=== PATIENT | female | born 1935 | race Caucasian/White ===

== ENCOUNTER → 2018-04-21 16:17 | Outpatient (CLI) | payer MEDICARE | END | disposition home or self-care (01) | LOC: D.CT 16:00 | PROVIDERS: ATTEND Internal Medicine Hematology & Oncology | DX: C18.2 Malignant neoplasm of ascending colon (principal) ==

== ENCOUNTER 2019-05-01 16:56 | Inpatient (IN) | payer MEDICARE, BC ==
[~2019-05-01] VITALS: Ht 167.6 cm; Wt 59.1 kg
[2019-05-01] MEDS ORDERED: METOPROLOL TART25 MG PO (17:14)
[2019-05-01] MEDS ORDERED: LIPITOR20 MG PO (17:14)
[2019-05-01] MEDS ORDERED: OMEPRAZOLE40 MG PO (17:15)
[2019-05-01] MEDS ORDERED: AMITRIPTYLINE150 MG PO (17:15)
[2019-05-01 18:23] LABS: BASOPHILS 0.3 % (0-2); EOSINOPHILS 0.6 % (0-7); HEMATOCRIT 46.6 % (36.0-48.0); HEMOGLOBIN 15.2 g/dL (12-16); IMMATURE GRANULOCYTES 0.2 % (0-5); LYMPHOCYTES 23.1 % (15-50); MCH 28.5 pg (26.0-34.0); MCHC 32.6 g/dL (31.0-37.0); MCV 87.3 fL (80.0-100.0); MEAN PLATELET VOLUME 9.1 fL (7.4-10.4); MONOCYTES 13.2 % (2-11); NEUTROPHILS 62.6 % (40-80); PLATELET COUNT 143 10x3/uL (130-400); RBC 5.34 10x6/uL (4.00-5.40); RDW 13.5 % (11.5-14.5); WBC 9.1 10x3/uL (4.8-10.8)
[2019-05-01 18:34] LABS: APTT 32.3 SECONDS (22.8-39.4); INR 1.01 (0.85-1.17); PROTIME 13.3 SECONDS (11.6-15.0)
[2019-05-01 19:01] LABS: CALC OSMOLALITY 280 mosm/kg (275-300); CALCIUM 9.5 mg/dL (8.5-10.1); CARBON DIOXIDE 29.8 mmol/L (21.0-32.0); CHLORIDE - SERUM 102 mmol/L (98-107); CREATININE - SERUM 0.8 mg/dL (0.6-1.3); GLUCOSE 128 mg/dL (74-106); POTASSIUM - SERUM 3.2 mmol/L (3.5-5.1); SODIUM 140 mmol/L (136-145); UREA NITROGEN 12 mg/dL (7-18); eGFR NON AFRICAN AMERICAN 73 mL/min (90-120)
[2019-05-01 19:15] LABS: ALBUMIN 3.7 g/dL (3.4-5.0); ALKALINE PHOSPHATASE 104 U/L (30-120); ALT (SGPT) 25 U/L (10-68); BILIRUBIN - TOTAL 1.67 mg/dL (0.2-1.3); CKMB 0.6 U/L (0.0-3.6); CREATINE KINASE 72 UL (21-215); PRO BNP 342 pg/mL (0-450); PROTEIN - SERUM 7.7 g/dL (6.4-8.2)
[2019-05-01 19:16] LABS: TROPONIN-I < 0.017 ng/mL (0.000-0.060)
[2019-05-01 22:08] VITALS: BP 174/99
--- NOTE | 2019-05-01 22:15 | NUR ---
PATIENT SITTING UP ON SIDE OF BED O2 SAT 89%. EDP NOTIFIED. O2 APPLIED @ 2 L/M. COMPLAINS OF R ARM PAIN. HR REMAINS TACHY @ 108.SAT 96% WITH O2 @ 2L/M PER NC
[2019-05-02 01:39] VITALS: BP 136/57; Ht 167.6 cm; Wt 59.1 kg
--- NOTE | 2019-05-02 01:52 | NUR ---
RECEIVED REPORT FROM CHACHO AREVALO IN ER. ARRIVED TO FLOOR ON STRETCHER. ALERT AND ORIENTEED X4 WITH PERIODS OF CONFUSION. VERY [place] AND MUST REPEAT QUESTIONS SEVERAL TIMES. ALSO, BECOMES CONFUSED. UNSURE IF THIS IS FROM BEING TIRED. DOES HAVE HX OF CVA. SHOWS NO S/S OF RT OR LEFT SIDED WEAKNESS. PUPILS PERRLA. SKIN INTACT. ANSWERES MOST QUESTIONS THAN BECOMES CONFUSED AND UNABLE TO RECALL. SDENIES ANY NEEDS AT THIS TIME.
[2019-05-02 06:15] VITALS: BP 163/87
[2019-05-02 07:46] VITALS: BP 167/75
--- NOTE | 2019-05-02 07:53 | NUR ---
REPORT RECEIVED. WILL CONTINUE WITH POC. PT CURRENTLY LYING SEMI FOWLERS. CALL LIGHT W/I REACH. PT IS AAO. RR EVEN AND UNLABORED ON 2L 02. R.HAND PIV SALINE LOCKED. NO S/S OF DISTRESS NOTED. PT DENIES ANY NEEDS AT THIS TIME. WILL CTM.
[2019-05-02 11:21] VITALS: BP 154/75
--- NOTE | 2019-05-02 12:27 | NUR ---
PT LYING HIGH FOWLERS. CALL LIGHT W/I REACH. EATING LUNCH AT THIS TIME. NO S/S OF DISTRESS NOTED. PT DENIES ANY NEEDS. PIV SALINE LOCKED. WILL CTM.
--- NOTE | 2019-05-02 13:11 | NUR ---
I have reviewed this patient and I concur with the Shift Assessment completed by the Licensed Practical Nurse today this shift.
[2019-05-02 16:53] VITALS: BP 164/77
--- NOTE | 2019-05-02 21:02 | NUR ---
GREETED PATIENT AND INTRODUCED MYSELF HER NURSE. PATIENT IS LAYING IN BED RESTING QUIETLY AT THIS TIME. RESPIRATIONS EVEN. NO S/S OF DISTRESS. STATES NO EVIDENCE OF PAIN AT THIS TIME. DENIES ANY NEEDS. CALL LIGHT IN REACH.
[2019-05-02 21:06] VITALS: BP 142/73
--- NOTE | 2019-05-02 23:07 | HP ---
PATIENT: GURJIT SERRANO MEDICAL RECORD: [id number] ACCOUNT: [id number] LOCATION:[address] : 37 ADMISSION DATE: 05/01/19 PCP: INA WISDOM MD HISTORY AND PHYSICAL EXAMINATION DATE OF ADMISSION: 05/01/2019 CHIEF COMPLAINT: Left shoulder and arm pain. HISTORY OF PRESENT ILLNESS: This is an 83-year-old female who presented to the ER on day of admission, initially complaining of pain in her left shoulder and left arm. A few days ago, she was lifting some heavy loads of laundry and thinks she may have strained her shoulder/arm. She was having difficulty with range of motion and could not sleep very well due to pain. When asked during triage about other symptoms, it was reported that she had a "low-grade fever" and cough. She denied any fever or chills otherwise (I spoke with the patient's emergency contact, Cher Piper, who said that she is always cold and keeps her temperature in her house up around 80). She went to see Dr. Pham last week on 04/27/2019 and the weather was cold. Since then, she had the sniffles and some congestion and she may have had a temperature of 99 or 99.2. That led to further questioning where there was reportedly some wheezing. She had a full workup in the ER including influenza A and B, RSV, and a strep test. These were all negative. She was also tested for coronavirus, which will take several days for that to get back. Her white count was normal. Her basic metabolic panel was fairly normal. Chest x-ray read by the ER staff suggested an atypical pneumonia (later read by radiologist has no acute cardiopulmonary findings, but she does have emphysematous changes) she was admitted for further care. PAST MEDICAL HISTORY: She has had a stroke, has hypertension, coronary artery disease, reflux and a diagnosis of colon cancer. PAST SURGICAL HISTORY: She has had a port placement. She has had a partial right colectomy. She has had a history of coronary stents per Dr. Wright, hysterectomy and an appendectomy as well. ALLERGIES: PENICILLIN. HOME MEDICATIONS: Metoprolol tartrate 25 mg once a day, atorvastatin 20 mg once a day, Elavil 150 mg at bedtime, Prilosec 40 mg a day. SOCIAL HISTORY: , retired and lives with family. HABITS: Never smoked. No alcohol or drugs. FAMILY HISTORY: Father at 72 of pneumonia. Mother at 81 of heart disease. A brother of lung cancer. REVIEW OF SYSTEMS: GENERAL: No major weight changes. HEENT: No particular sinus or allergy problems. RESPIRATORY: Chest x-rays in the past are consistent with COPD changes. She does not have a diagnosis of COPD or emphysema. She takes no medicines for. GASTROINTESTINAL: She has a history of colon cancer from 2018. Has a little reflux. GENITOURINARY: No significant problems there. HISTORY AND PHYSICAL [id number] GURJIT SERRANO MUSCULOSKELETAL: No significant joint aches or pains. NEUROLOGY: No migraines or seizures. She has had left middle cerebral artery stroke in 2018, which further workup actually showed colon cancer. PSYCHIATRIC: Denies depression or melancholia. She does not sleep well though. PHYSICAL EXAMINATION: VITAL SIGNS: Temperature 99.3, pulse 108, respirations 17, blood pressure 154/75, O2 sat 94%. HEENT: Unremarkable. NECK: Supple. HEART: Regular rate and rhythm. LUNGS: Pretty clear. No wheeze, no rales. ABDOMEN: Soft, nontender. EXTREMITIES: She has decreased range of motion to her left shoulder. She has generalized tenderness throughout the left shoulder area. No change in color, texture, or temperature of the skin around the shoulder. NEUROLOGIC: Unremarkable. LABORATORY AND DIAGNOSTIC DATA: CBC with a white count of 9100, hemoglobin 15.2, hematocrit 46.6. Basic metabolic panel; sodium 140, potassium 3.2, chloride 102, CO2 29.8, BUN 12, creatinine 0.8, glucose 128, calcium is 9.5, INR 1.01. Liver functions are normal except total bilirubin is 1.67, troponin less than 0.017. Flu influenza test for A and B are negative. RSV is negative. Strep test is negative. Coronavirus test by PCR is pending. X-ray of the left forearm shows no acute process. Left humerus shows no acute abnormalities. Chest x-ray shows no acute cardiopulmonary process, changes are consistent with emphysema. Throat culture and blood cultures have been done. ASSESSMENT: 1. Left shoulder and arm pain. 2. Mild cough. 3. Sinus congestion. PLAN: Throat and blood cultures have been done. Coronavirus is pending. She is started on Rocephin and azithromycin. We will give her steroids for her arm, see how she does with that and consider discharge sooner rather than later. TRANSINT:[id number] Voice Confirmation ID: [id number] DOCUMENT ID: [id number] INA WISDOM MD at 2307 CC: [id number] DICTATION DATE: 05/02/19 1559 STEM FRAZER: 05/02/19 1630 ADM IN [place] [id number] [place] [address]
--- NOTE | 2019-05-03 00:17 | NUR ---
PT CONTINUES TO BE IN DROPLET ISOLATION DUE TO PRESUMPTIVE COVID-19.
[2019-05-03 00:30] VITALS: BP 146/51
--- NOTE | 2019-05-03 01:20 | NUR ---
PT CONFUSED AND TRIED TO HIT THIS NURSE WHILE DOING IV PUSH IN RIGHT WRIST. REORIENTATED PATIENT TO SURROUNDINGS AND STAFF. CALL LIGHT IN REACH.
--- NOTE | 2019-05-03 03:33 | NUR ---
PT RESTING IN BED WITH EYES CLOSED. RESPIRATIONS EVEN. NO S/S OF DISTRESS. CALL LIGHT IN REACH.
[2019-05-03 04:30] VITALS: BP 132/55
[2019-05-03 06:19] LABS: BASOPHILS 0.5 % (0-2); HEMATOCRIT 40.4 % (36.0-48.0); HEMOGLOBIN 13.2 g/dL (12-16); IMMATURE GRANULOCYTES 0.2 % (0-5); LYMPHOCYTES 26.9 % (15-50); MCH 28.1 pg (26.0-34.0); MCHC 32.7 g/dL (31.0-37.0); MEAN PLATELET VOLUME 9.1 fL (7.4-10.4); MONOCYTES 13.5 % (2-11); NEUTROPHILS 57.9 % (40-80); PLATELET COUNT 135 10x3/uL (130-400); RDW 13.2 % (11.5-14.5)
[2019-05-03 06:38] LABS: CALC OSMOLALITY 282 mosm/kg (275-300); CALCIUM 8.7 mg/dL (8.5-10.1); CARBON DIOXIDE 31.7 mmol/L (21.0-32.0); CHLORIDE - SERUM 103 mmol/L (98-107); CREATININE - SERUM 0.7 mg/dL (0.6-1.3); GLUCOSE 123 mg/dL (74-106); SODIUM 142 mmol/L (136-145); UREA NITROGEN 9 mg/dL (7-18); eGFR NON AFRICAN AMERICAN 85 mL/min (90-120)
[2019-05-03 07:05] LABS: WBC 6.1 10x3/uL (4.8-10.8)
--- NOTE | 2019-05-03 08:00 | NUR ---
PT LAYING SUPINE. RR EVEN AND UNLABORED ON 2L NC. CALL LIGHT WITHIN REACH. INSTRUCTED TO CALL 2150 ON THE PHONE WHEN IN NEED OF SOMETHING. PHONE IN REACH. DROPLET PRECAUTIONS IN PLACE. BED ALARM ON AND FUNCTIONING PROPERLY. DENIES NEEDS OR PAIN AT THIS TIME. ASSISTED WITH SETTING UP BREAKFAST TRAY. SITTING UP AND EATING WITH NO DIFFICULTY. AXO AT THIS TIME, HOWEVER, SLOW TO RESPOND. ASSESSMENT COMPLETE AND CHARTED. BED IN LOWEST POSITION. WILL CONTINUE TO MONITOR.
[2019-05-03 09:39] VITALS: BP 125/71
--- NOTE | 2019-05-03 10:07 | NUR ---
I have reviewed this patient and I concur with the Shift Assessment completed by the Licensed Practical Nurse today this shift.
--- NOTE | 2019-05-03 11:22 | NUR ---
PT CALLED, IV HURTING. UPON WAKING IN, IV RED AND SWOLLEN. IV INFUSIONS STOPPED. RESITE ATTEMPTED X2. UNSUCCESSFUL. PT HAS PORT TO LEFT CHEST. SPOKE WITH DR. WISDOM FOR PERMISSION TO ACCESS PORT. STATED HE WAS PROBABLY GOING TO SEND HER HOME TODAY. WILL WAIT FOR HIM TO ROUND.
--- NOTE | 2019-05-03 11:30 | NUR ---
SPENT APPROX. 20 MINUTES SPEAKING WITH DAUGHTER OVER PHONE ABOUT POC. VERBALIZED UNDERSTANDING AND NO FURTHER QUESTIONS AT THIS TIME.
[2019-05-03 13:15] VITALS: BP 100/70
--- NOTE | 2019-05-03 17:00 | NUR ---
SPOKE WITH DAUGHTER ABOUT UPDATED POC. SPOKE WITH DR. WISDOM'S NURSE ABOUT GETTING ELECTROLYTE PROTOCOL AND STOOL SOFTENER FOR PT, WELL DISCHARGE TIME. STATED SHE WOULD CALL BACK.
[2019-05-03 17:26] VITALS: BP 144/77
[2019-05-03 19:09] VITALS: BP 145/75
--- NOTE | 2019-05-03 19:38 | NUR ---
PT IN BED, AAO X 3, RESP EVEN AND UNLABORED. NO DISTRESS NOTED, O2@2L/NC, NO C/O PAIN OR DISCOMFORT NOTED. PT EATING DINNER, CL IN REACH, SR UP X 2.
[2019-05-04] VITALS: BP 127/68
[2019-05-04 04:00] VITALS: BP 140/68
[2019-05-04 08:07] VITALS: BP 127/76
--- NOTE | 2019-05-04 11:06 | NUR ---
I have reviewed this patient and I concur with the Shift Assessment completed by the Licensed Practical Nurse today this shift.
--- NOTE | 2019-05-04 11:30 | NUR ---
D/C INTRUCTIONS REVIEWED WITH PT AND DAUGHTER. IV D/C WITH CATHETER TIP INTACT. LEFT VIA WHEELCHAIR WITH ALL BELONGINGS AND WITH MASK.
--- NOTE | 2019-05-04 17:14 | MORECARE ---
CASE MANAGEMENT DISCHARGE SUMMARY PATIENT: GURJIT SERRANO UNIT: [id number] ADM DATE: 05/01/19 AGE: 83 : 37 SEX: F ROOM/BED: D.2130 AUTHOR: ELENA REGAN PHYSICIAN: REFERRING PHYSICIAN: INA WISDOM MD DATE OF SERVICE: 05/04/19 Discharge Plan Patient Name: [facility]URJIT [facility]ERRANO [facility] [facility] 1935 Planned Disposition: Home Anticipated Discharge Date: 05/04/19 Discharge Date: 05/04/2019 Expected LOS: 3 Initial Reviewer: [email or web address] Initial Review Date: 05/04/2019 Generated: 05/04/19 6:14 pm Patient Name: GURJIT SERRANO Page [id number] at 1714 All edits/amendments must be made on the electronic document DICTATION DATE: 05/04/191713 BAND ATTACHER: JANICE 05/04/191713 RPT#: [id number] DC DATE:05/04/19 STATUS: DIS IN [facility] [address] [facility] [place] [address] END OF REPORT
--- NOTE | 2019-05-04 17:23 | MORECARE ---
CASE MANAGEMENT DISCHARGE SUMMARY PATIENT: GURJIT SERRANO UNIT: [id number] ADM DATE: 05/01/19 AGE: 83 : 37 SEX: F ROOM/BED: D.2130 AUTHOR: JASS,DOC PHYSICIAN: REFERRING PHYSICIAN: INA WISDOM MD DATE OF SERVICE: 05/04/19 Discharge Plan Patient Name: GURJIT SERRANO Facility: [facility]:[place] : 1935 Planned Disposition: Home Anticipated Discharge Date: 05/04/19 Discharge Date: 05/04/2019 Expected LOS: 3 Initial Reviewer: [email or web address] Initial Review Date: 05/04/2019 Generated: 05/04/19 6:23 pm Comments DCP- Discharge Planning Updated by [email or web address]: Ronald Thomas on 05/04/19 4:[address] Patient Name: GURJIT SERRANO Encounter No: [id number] : 1935 Primary Insurance: MEDICARE A & B Anticipated DC Date: 05-04-2019 Planned Disposition: Home DISCHARGE PLANNING NOTE: CM CALLED PT IN ROOM TO DISCUSS DISCHARGE PLANNING AND NEEDS, THERE WAS NO ANSWER. DUE TO INFECTION RISK PROTOCOL, CM CALLED PT'S LISTED EMGERENCY CONTACT, RACHEAL JOSEPH, . RACHEAL REPORTS PT LIVING AT HOME INDEPENDENTLY WITH SPOUSE AND ADULT DAUGHTER. PT HAS NO MEDICAL EQUIPMENT AND NO OUTSIDE SERVICES ASSISTING IN THE HOME. CM DISCUSSED AVAILABILITY OF HOME HEALTH, REHAB SERVICES AND MEDICAL EQUIPMENT. YOLIE DENIES DISCHARGE NEEDS, REPORTS SHE WILL PICK PT UP FOR DISCHARGE HOME TODAY. FINAL FINISHER FORGING DIES NURSE NOTIFIED. Ronald Thomas, CASE MANAGEMENT DCPIA - Discharge Planning Initial Assessment Updated by [email or web address]: Ronald Thomas on 05/04/19 5:15 pm * Is the patient Alert and Oriented? Yes * How many steps to enter\exit or inside your home? RAMP * PCP DR. WISDOM * Pharmacy [facility] * Preadmission Environment Home with Family * ADLs Independent * Equipment None * Other Equipment [facility] - MEDICAL EQUIPMENT PROVIDER PREFERENCE * List name and contact numbers for known caregivers / representatives who currently or will assist patient after discharge: RACHEAL JOSEPH, GRANDDAUGHTER, * Verbal permission to speak to the caregivers and representatives has been obtained from the patient. N/A * Community resources currently utilized None * Please name any agencies selected above. NONE * Additional services required to return to the preadmission environment? No * Can the patient safely return to the preadmission environment? Yes * Has this patient been hospitalized within the prior 30 days at any hospital? No Last DP export: 05/04/19 4:14 p Patient Name: GURJIT SERRANO Page [id number] at 1723 All edits/amendments must be made on the electronic document DICTATION DATE: 05/04/191722 ELECTRONICS DETAIL DRAFTSPERSON: JANICE 05/04/191722 RPT#: [id number] DC DATE:05/04/19 STATUS: DIS IN [facility] [address] [place] [address] END OF REPORT
== END 2019-05-04 14:05 | disposition home or self-care (01) | DRG 556 ==
LOC: D.ER 16:56 → D.M2 22:55
PROVIDERS: Family Medicine; ADMIT Family Medicine; ATTEND Family Medicine
DX: M25.512 Pain in left shoulder (principal); R09.81 Nasal congestion; I10 Essential (primary) hypertension; I25.10 Atherosclerotic heart disease of native coronary artery without angina pectoris; K21.9 Gastro-esophageal reflux disease without esophagitis; Z86.73 Personal history of transient ischemic attack (TIA), and cerebral infarction without residual deficits